=== PATIENT | male | born 1990 | race Caucasian/White ===

== ENCOUNTER 2017-08-28 12:52 | Emergency (ER) | payer SELFPAY ==
[~2017-08-28] VITALS: Ht 188 cm; Wt 170.0 kg
[2017-08-28 13:05] VITALS: BP 135/90; PULSE 85; RESP 16; TEMP 98; O2SAT 100
[2017-08-28] MEDS ORDERED: OFLO0.3D9 EACH EAR (14:43)
[2017-08-28] MEDS ORDERED: AMOX500T PO (14:43)
--- NOTE | 2017-08-28 14:49 | PD ---
HPI Chief Complaint: ENT Complaint Time Seen by Provider: 14:26 Travel History International Travel<30 days: No Contact w/Intl Traveler<30days: No Traveled to known affect area: No History of Present Illness HPI 26-year-old male presents to the emergency room for evaluation of bilateral ear pain for the past 10 days. It started on the left and has since gone to the right. Pain is moderate. He has been taking [id number] pain medication with significant relief in symptoms. He has associated decreased hearing. Patient woke up this morning and reports significant improvement to the left ear but noticed a lot of drainage coming out of the ear. He denies swimming recently. Reports feeling feverish since onset of symptoms but denies any objective fevers. No chronic medical conditions or daily medications. PFSH Social History Tobacco Use: No Allergies-Medications Reported Meds & Prescriptions Reported Meds & Active Scripts Active Amoxicillin 500 Mg Tab 500 Mg PO BID 7 Days Ofloxacin Otic Drops 0.3 % Drops 10 Drop EACH EAR DAILY Review of Systems Except as stated in HPI: all other systems reviewed are Neg Physical Exam Narrative GENERAL: Well-nourished, well-developed male no acute distress. Afebrile. Ambulatory. SKIN: Focused skin assessment warm/dry. HEAD: Normocephalic. EYES: No scleral icterus. No injection or drainage. EARS: Bilateral pinnae appear within normal limits. There is moderate purulent drainage with associated edema in bilateral ears, left worse than right. Bilateral tympanic membranes are difficult to see through the edema and drainage but do not appear to be erythematous or dull. No obvious perforation. NECK: Supple, trachea midline. No JVD or lymphadenopathy. CARDIOVASCULAR: Regular rate and rhythm without murmurs, gallops, or rubs. RESPIRATORY: Breath sounds equal bilaterally. No accessory muscle use. Data Data Last Documented VS Vital Signs Date Time Temp Pulse Resp B/P (MAP) Pulse Ox O2 Delivery O2 Flow Rate FiO2 08/28/18 13:05 98.0 85 16 135/90 (105) 100 MDM Medical Decision Making Medical Screen Exam Complete: Yes Emergency Medical Condition: Yes Medical Record Reviewed: Yes Differential Diagnosis Otitis externa, otitis media, eustachian tube dysfunction Narrative Course 26-year-old male presents to the emergency room for evaluation of bilateral ear pain for the past 10 days. He denies swimming recently. Reports associated decreased hearing. States left ear improved last night he woke up this morning to drainage from the left ear. Denies objective fevers. Vital signs stable. Physical exam reveals significant purulent drainage and mild to moderate edema of bilateral ear canals consistent with otitis externa. It is difficult to see his tympanic membranes because of the drainage and swelling but I do not see any obvious erythema or perforation. Given patient's reported improvement in symptoms after developing drainage from the ear, I am concerned for otitis media with spontaneous rupture of the left tympanic membrane. He will be discharged with prescription for amoxicillin and ofloxacin. Patient told to follow-up with a primary care physician for recheck in 1 week or return for worsening symptoms. He understands and agrees to plan. Diagnosis Primary Impression: Otitis externa Qualified Codes: H60.313 - Diffuse otitis externa, bilateral Referrals: Primary Care Physician Additional Instructions: Rest and drink plenty of fluids. Amoxicillin as directed, until gone. Ofloxacin drops as directed, for 7-10 days. Take ibuprofen with food as directed, as needed for pain. Follow up with a primary care physician for recheck in 1 week. Return to emergency room for worsening symptoms. Med/Other Pt SpecificInfo: Prescription(s) given Scripts Amoxicillin (Amoxicillin) 500 Mg Tab 500 MG PO BID for Infection for 7 Days, #14 TAB 0 Refills Prov: Ramona Wilson MD 08/28/17 Ofloxacin Otic Drops (Ofloxacin Otic Drops) 0.3 % Drops 10 DROP EACH EAR DAILY for Infection, #1 BOTTLE 0 Refills Prov: Ramona Wilson MD 08/28/17 Disposition: 01 DISCHARGE HOME Condition: Stable Nita Morrissey Aug 28, 2017 14:49
== END 2017-08-28 15:54 | disposition home or self-care (01) ==
LOC: NEPK 12:52
DX: H60.313 Diffuse otitis externa, bilateral (principal)
CPT/HCPCS: 99283